=== PATIENT | male | born 1960 | race Two or more races ===

== ENCOUNTER 2021-02-13 09:17 | Inpatient (IN) | payer OTHER ==
[2021-02-10 13:46] LABS: BASOPHILS % (AUTO) 1 % (0-1); EOSINOPHILS % (AUTO) 1 % (1-7); LYMPHOCYTES % (AUTO) 34 % (22-44); MEAN CORPUSCULAR HEMOGLOBIN 28.2 pg (27.5-34.5); MEAN PLATELET VOLUME 8.2 fL (7.4-10.4); MONOCYTES % (AUTO) 9 % (2-9); NEUTROPHILS % (AUTO) 56 % (42-75); PLATELET COUNT 235 x10^3/uL (130-400); RED BLOOD COUNT 5.07 x10^6/uL (4.38-5.82); RED CELL DISTRIBUTION WIDTH 15.1 % (9.4-14.8)
[2021-02-10 13:50] LABS: MD NO
[2021-02-10 14:00] LABS: ALBUMIN 3.9 g/dL (3.4-5.0); ANION GAP 4 mmol/L (5-15); CALCIUM 8.9 mg/dL (8.5-10.1); CHLORIDE 108 mmol/L (98-107)
[2021-02-10 14:04] LABS: ALANINE AMINOTRANSFERASE 37 U/L (12-78); ALKALINE PHOSPHATASE 122 U/L (45-117); BILIRUBIN,TOTAL 1.1 mg/dL (0.2-1.0); CREATININE 1.09 mg/dL (0.7-1.3)
[~2021-02-13] VITALS: Ht 167.6 cm; Wt 77.9 kg
[~2021-02-13 09:17] MED LIST: AMLO5TAB4 PO; ASPI81TA45 PO; ATOR40TA78 PO; HEPARIN 1,000 UNITS/ML, 10ML ONE; PROTAMINE SULFATE 10 MG/ML, 25ML ONE; THROMBIN 20,000 UNIT VIAL TP ONE
[2021-02-13] MEDS ORDERED: MIDAZOLAM 1 MG/ML, 2ML ONE (09:23)
[2021-02-13] MEDS ORDERED: FENTANYL PF 250 MCG/5ML ONE (09:24)
[2021-02-13] MEDS ORDERED: CHLORHEXIDINE 15 ML UDC PO ONE (10:00)
[2021-02-13] MEDS ORDERED: LACTATED RINGERS 1,000 ML IV SCH (10:00)
[2021-02-13] MEDS ORDERED: LIDOCAINE-MPF 1%, 2ML INFIL ONE (10:00)
[2021-02-13] MEDS ORDERED: CHLORHEXIDINE 15 ML UDC ONE (10:02)
[2021-02-13] MEDS ORDERED: ROCURONIUM 10 MG/ML,10ML ONE (11:10)
[2021-02-13] MEDS ORDERED: CEFAZOLIN 1,000 MG ONE (11:10)
[2021-02-13] MEDS ORDERED: NEOSTIGMINE 1 MG/ML, 10ML ONE (11:10)
[2021-02-13] MEDS ORDERED: GLYCOPYRROLATE 0.2MG/1ML, 5ML ONE (11:10)
[2021-02-13] MEDS ORDERED: PHENYLEPHRINE 10 MG/ML ONE (11:10)
[2021-02-13] MEDS ORDERED: DEXAMETHASONE 4 MG/ML, 1ML ONE (11:10)
[2021-02-13] MEDS ORDERED: PROPOFOL 10 MG/ML, 20ML ONE (11:10)
[2021-02-13] MEDS ORDERED: HEPARIN 1,000 UNITS/ML, 10ML IV ONE (12:05)
[2021-02-13] MEDS ORDERED: HEPARIN 1,000 UNITS/ML, 30ML ONE (12:08)
[2021-02-13] MEDS: HYDROmorphone 5 MG, BUPIVACAINE/PF 0.5%, 30ML 62.5 ML in SODIUM CHLORIDE 0.9% 182.5 ML EPIDCONT SCH ×2 (13:00→17:00)
[2021-02-13] MEDS ORDERED: ONDANSETRON 2MG/ML, 2ML IVPush PRN ×2 (13:00→16:30)
[2021-02-13] MEDS ORDERED: PROMETHAZINE 25 MG/ML, 1ML IVPush PRN (13:00)
[2021-02-13] MEDS ORDERED: METHOCARBAMOL 1,000 MG in DEXTROSE 5% 100 ML IV PRN (13:00)
[2021-02-13] MEDS ORDERED: NALOXONE 0.4 MG/ML, 1ML IV PRN (13:00)
[2021-02-13] MEDS ORDERED: OXYcodone 5 MG/5 ML ORAL.SOL UDC PO PRN (13:00)
[2021-02-13] MEDS ORDERED: HYDROmorphone 1 MG/ML, 1ML INJ IVPush PRN (13:00)
[2021-02-13] MEDS ORDERED: EPHEDRINE 50 MG/ML, 1ML IM PRN (13:00)
[2021-02-13] MEDS ORDERED: DIPHENHYDRAMINE 50 MG/ML, 1ML IVPush PRN (13:00)
[2021-02-13] MEDS ORDERED: METOCLOPRAMIDE 5 MG/ML, 2ML IV PRN (13:00)
[2021-02-13] MEDS ORDERED: MEPERIDINE/PF 25MG/0.5ML IVPush PRN (13:00)
[2021-02-13] MEDS ORDERED: DIAZEPAM 5 MG/ML, 2ML IVPush PRN (13:00)
[2021-02-13] MEDS ORDERED: DO NOT GIVE XX SCH (13:00)
[2021-02-13] MEDS ORDERED: EPHEDRINE 50 MG/ML, 1ML IVPush PRN ×2 (13:00)
[2021-02-13] MEDS ORDERED: ACETAMINOPHEN 325 MG TABLET PO PRN (13:00)
[2021-02-13] MEDS ORDERED: hydrALAzine 20 MG/ML, 1ML IV PRN (13:00)
[2021-02-13] MEDS ORDERED: MEPERIDINE/PF 25MG/0.5ML IV PRN (13:00)
[2021-02-13] MEDS ORDERED: LABETALOL 5MG/ML, 20ML IV PRN (13:00)
[2021-02-13] MEDS ORDERED: THROMBIN 20,000 UNIT VIAL TP ONE (13:38)
[2021-02-13] MEDS ORDERED: FUROSEMIDE 20 MG/2 ML ONE (16:07)
[2021-02-13] MEDS ORDERED: FENTANYL PF 100 MCG/2ML ONE ×3 (16:10→17:05)
[2021-02-13] MEDS ORDERED: LABETALOL 5MG/ML, 20ML IVPush PRN (16:30)
[2021-02-13] MEDS: FENTANYL PF 100 MCG/2ML IV PRN ×5 (16:37→17:23)
[2021-02-13 18:03] LABS: BASOPHILS % (AUTO) 0 % (0-1); EOSINOPHILS % (AUTO) 0 % (1-7); LYMPHOCYTES % (AUTO) 9 % (22-44); MEAN CORPUSCULAR HGB CONC 32.5 g/dL (33.2-36.2); MEAN PLATELET VOLUME 8.3 fL (7.4-10.4); MONOCYTES % (AUTO) 3 % (2-9); NEUTROPHILS % (AUTO) 88 % (42-75); PLATELET COUNT 224 x10^3/uL (130-400); RED BLOOD COUNT 4.37 x10^6/uL (4.38-5.82)
[2021-02-13 18:12] LABS: ANION GAP 6 mmol/L (5-15); CALCIUM 7.6 mg/dL (8.5-10.1); CHLORIDE 113 mmol/L (98-107); CREATININE 1.39 mg/dL (0.7-1.3)
[2021-02-13 18:20] LABS: MD SCAN
[2021-02-13] MEDS: LACTATED RINGERS 1,000 ML IV SCH (20:05)
[2021-02-13] MEDS: CEFAZOLIN PMX 1GM/50ML 50 ML IVPB SCH (20:06)
[2021-02-13] MEDS: MEPERIDINE/PF 25MG/ML,1ML IV PRN ×2 (20:54→23:48)
[2021-02-13] MEDS ORDERED: MEPERIDINE/PF 25MG/ML,1ML IV PRN (21:00)
[2021-02-14] MEDS: LACTATED RINGERS 1,000 ML IV SCH ×2 (03:04→09:52)
[2021-02-14] MEDS: CEFAZOLIN PMX 1GM/50ML 50 ML IVPB SCH (04:04)
[2021-02-14 04:27] LABS: BASOPHILS % (AUTO) 1 % (0-1); EOSINOPHILS % (AUTO) 0 % (1-7); LYMPHOCYTES % (AUTO) 8 % (22-44); MEAN CORPUSCULAR HEMOGLOBIN 28.8 pg (27.5-34.5); MEAN CORPUSCULAR HGB CONC 33.4 g/dL (33.2-36.2); MEAN PLATELET VOLUME 8.6 fL (7.4-10.4); MONOCYTES % (AUTO) 9 % (2-9); NEUTROPHILS % (AUTO) 83 % (42-75); PLATELET COUNT 202 x10^3/uL (130-400); RED BLOOD COUNT 4.06 x10^6/uL (4.38-5.82)
[2021-02-14 04:30] LABS: MD NO
[2021-02-14 04:36] LABS: ANION GAP 6 mmol/L (5-15); CALCIUM 7.7 mg/dL (8.5-10.1); CHLORIDE 112 mmol/L (98-107); CREATININE 1.24 mg/dL (0.7-1.3)
[2021-02-14] MEDS: MEPERIDINE/PF 25MG/ML,1ML IV PRN (07:46)
[2021-02-14] MEDS ORDERED: HYDROmorphone 5 MG, BUPIVACAINE/PF 0.5%, 30ML 62.5 ML in SODIUM CHLORIDE 0.9% 182.5 ML EPIDCONT PRN (11:00)
[2021-02-14] MEDS ORDERED: HYDROmorphone 1 MG/ML, 1ML INJ IV PRN (11:00)
[2021-02-14] MEDS: D5%-0.45NACL+KCL 20MEQ 1,000 ML IV SCH ×2 (11:29→18:25)
[2021-02-14] MEDS: ENOXAPARIN 40 MG/0.4 ML SQ SCH (16:28)
[2021-02-15] MEDS: D5%-0.45NACL+KCL 20MEQ 1,000 ML IV SCH ×4 (00:56→19:50)
[2021-02-15 04:36] LABS: BASOPHILS % (AUTO) 1 % (0-1); EOSINOPHILS % (AUTO) 0 % (1-7); LYMPHOCYTES % (AUTO) 15 % (22-44); MEAN CORPUSCULAR HEMOGLOBIN 28.8 pg (27.5-34.5); MEAN CORPUSCULAR HGB CONC 33.9 g/dL (33.2-36.2); MEAN PLATELET VOLUME 8.5 fL (7.4-10.4); MONOCYTES % (AUTO) 12 % (2-9); NEUTROPHILS % (AUTO) 73 % (42-75); PLATELET COUNT 156 x10^3/uL (130-400); RED BLOOD COUNT 3.42 x10^6/uL (4.38-5.82); RED CELL DISTRIBUTION WIDTH 15.6 % (9.4-14.8)
[2021-02-15 04:39] LABS: ALBUMIN 2.5 g/dL (3.4-5.0); CALCIUM 7.7 mg/dL (8.5-10.1); CHLORIDE 111 mmol/L (98-107); CREATININE 0.95 mg/dL (0.7-1.3)
[2021-02-15 04:48] LABS: ANION GAP 3 mmol/L (5-15)
[2021-02-15 05:04] LABS: <PLATELET ESTIMATE> ADEQUATE; MD MORPH REVIEW ONLY
[2021-02-15 05:05] LABS: POLYCHROMASIA 1+
[2021-02-15 05:06] LABS: ANISOCYTOSIS 1+; BASOPHILLIC STIPPLING 1+; LARGE PLATELETS 1+; OVALOCYTES 1+
[2021-02-15] MEDS ORDERED: SODIUM PHOSPHATE 10 MMOL in SODIUM CHLORIDE 0.9% 500 ML IV ONE (07:00)
[2021-02-15] MEDS ORDERED: SODIUM CHLORIDE 0.9%, 500ML IVBOLUS ONE (08:00)
[2021-02-15] MEDS: AMLODIPINE 5 MG TABLET PO SCH (09:00)
[2021-02-15] MEDS: ATORVASTATIN 40 MG TABLET PO SCH (09:00)
[2021-02-15] MEDS ORDERED: POTASSIUM PHOSPHATE 22 MEQ in SODIUM CHLORIDE 0.9% 500 ML IV ONE (09:30)
[2021-02-15] MEDS ORDERED: CALCIUM GLUCONATE 4.6 MEQ in SODIUM CHLORIDE 0.9% 90 ML IV ONE (09:30)
[2021-02-15] MEDS ORDERED: ACETAMINOPHEN 100 ML IVPB ONE (10:00)
[2021-02-15] MEDS ORDERED: PHENOL THROAT SPRAY BOTTLE MM PRN (10:00)
[2021-02-15 10:23] VITALS: BP 144/69
[2021-02-15 13:13] VITALS: BP 123/63
[2021-02-15] MEDS: ENOXAPARIN 40 MG/0.4 ML SQ SCH (16:08)
[2021-02-15 18:49] VITALS: BP 154/78
[2021-02-15] MEDS: ASPIRIN 81 MG TABLET EC PO SCH (19:51)
[2021-02-16 01:41] VITALS: BP 160/77
[2021-02-16] MEDS: D5%-0.45NACL+KCL 20MEQ 1,000 ML IV SCH ×3 (01:58→18:01)
[2021-02-16 07:24] VITALS: BP 130/63
[2021-02-16] MEDS: AMLODIPINE 5 MG TABLET PO SCH (08:32)
[2021-02-16] MEDS: ATORVASTATIN 40 MG TABLET PO SCH (08:32)
[2021-02-16 09:54] LABS: BASOPHILS % (AUTO) 0 % (0-1); CALCIUM 7.9 mg/dL (8.5-10.1); CREATININE 0.81 mg/dL (0.7-1.3); EOSINOPHILS % (AUTO) 0 % (1-7); LYMPHOCYTES % (AUTO) 19 % (22-44); MEAN CORPUSCULAR HEMOGLOBIN 28.7 pg (27.5-34.5); MEAN CORPUSCULAR HGB CONC 33.2 g/dL (33.2-36.2); MEAN PLATELET VOLUME 8.7 fL (7.4-10.4); MONOCYTES % (AUTO) 10 % (2-9); NEUTROPHILS % (AUTO) 71 % (42-75); PLATELET COUNT 178 x10^3/uL (130-400); RED BLOOD COUNT 3.28 x10^6/uL (4.38-5.82); RED CELL DISTRIBUTION WIDTH 15.3 % (9.4-14.8)
[2021-02-16 09:59] LABS: CHLORIDE 108 mmol/L (98-107)
[2021-02-16 10:00] LABS: MD NO
[2021-02-16 10:02] LABS: ANION GAP 5 mmol/L (5-15)
[2021-02-16] MEDS ORDERED: SODIUM CHLORIDE 0.9% 1,000ML IV ONE (10:30)
[2021-02-16 13:03] VITALS: BP 139/78
[2021-02-16] MEDS ORDERED: BISACODYL 10 MG SUPP PR PRN (14:30)
[2021-02-16] MEDS: ENOXAPARIN 40 MG/0.4 ML SQ SCH (16:09)
[2021-02-16] MEDS ORDERED: CALCIUM GLUCONATE 4.6 MEQ in SODIUM CHLORIDE 0.9% 100 ML IV ONE (16:30)
[2021-02-16] MEDS ORDERED: LABETALOL 5MG/ML, 20ML IVPush ONE (16:30)
[2021-02-16] MEDS ORDERED: FUROSEMIDE 20 MG/2 ML IV ONE (17:00)
[2021-02-16 17:58] VITALS: BP 160/78
[2021-02-16 18:44] VITALS: BP 132/74
[2021-02-16] MEDS: ASPIRIN 81 MG TABLET EC PO SCH (20:42)
[2021-02-16] MEDS: HYDROmorphone 5 MG, BUPIVACAINE/PF 0.5%, 30ML 62.5 ML in SODIUM CHLORIDE 0.9% 182.5 ML EPIDCONT PRN ×2 (23:19)
[2021-02-17 03:11] VITALS: BP 153/88
[2021-02-17 07:12] VITALS: BP 158/83
[2021-02-17] MEDS ORDERED: MAGNESIUM SULFATE PMX 2GM/50ML 50 ML IV ONE (09:00)
[2021-02-17] MEDS ORDERED: ENALAPRILAT 1.25 MG/ML, 1ML IV SCH (09:00)
[2021-02-17] MEDS: ATORVASTATIN 40 MG TABLET PO SCH (09:03)
[2021-02-17] MEDS: D5%-0.45NACL+KCL 20MEQ 1,000 ML IV SCH ×2 (09:03→22:07)
[2021-02-17] MEDS: AMLODIPINE 5 MG TABLET PO SCH (09:03)
[2021-02-17 13:32] VITALS: BP 135/79
[2021-02-17] MEDS: ENOXAPARIN 40 MG/0.4 ML SQ SCH (16:27)
[2021-02-17] MEDS: CARVEDILOL 3.125 MG TABLET PO SCH (17:40)
[2021-02-17 19:51] VITALS: BP 139/75
[2021-02-17] MEDS: ASPIRIN 81 MG TABLET EC PO SCH (20:18)
[2021-02-18 02:20] VITALS: BP 130/71
[2021-02-18] MEDS: CARVEDILOL 3.125 MG TABLET PO SCH ×2 (05:38→18:05)
[2021-02-18] MEDS: ATORVASTATIN 40 MG TABLET PO SCH (07:56)
[2021-02-18] MEDS: AMLODIPINE 5 MG TABLET PO SCH (07:56)
[2021-02-18 08:00] VITALS: BP 150/77
[2021-02-18] MEDS ORDERED: HYDROcodone/APAP 5/325 TABLET PO PRN (12:30)
[2021-02-18] MEDS ORDERED: ACETAMINOPHEN 325 MG TABLET PO PRN (12:30)
[2021-02-18 14:00] VITALS: BP 145/71
[2021-02-18] MEDS: ENOXAPARIN 40 MG/0.4 ML SQ SCH (15:58)
[2021-02-18 18:05] VITALS: BP 138/78
[2021-02-18 21:13] VITALS: BP 133/75
[2021-02-18] MEDS: DOCUSATE 100 MG CAPSULE PO SCH (21:26)
[2021-02-18] MEDS: ASPIRIN 81 MG TABLET EC PO SCH (21:26)
[2021-02-19 02:14] VITALS: BP 134/77
[2021-02-19] MEDS: CARVEDILOL 3.125 MG TABLET PO SCH (06:52)
[2021-02-19 07:36] VITALS: BP 146/68
[2021-02-19] MEDS: ATORVASTATIN 40 MG TABLET PO SCH (07:48)
[2021-02-19] MEDS: DOCUSATE 100 MG CAPSULE PO SCH (08:06)
[2021-02-19] MEDS: AMLODIPINE 5 MG TABLET PO SCH (08:06)
[2021-02-19] MEDS ORDERED: CARV3.1212 PO (10:14)
[2021-02-19] MEDS ORDERED: OXYC1TAB14 PO (12:29)
[2021-02-19] MEDS ORDERED: DOCU-131 PO (12:29)
== END 2021-02-19 13:45 | disposition home or self-care (01) | DRG 271 ==
LOC: ORIP 09:17 → CCU 18:31 → 4NE 02-15 10:26 → DCLOUNGE 02-19 13:34
PROVIDERS: ADMIT Surgery; ATTEND Family Medicine
PROC: 04100JK Bypass Abdominal Aorta to Bilateral Femoral Arteries with Synthetic Substitute, Open Approach (ICD-10-PCS; principal; 2021-02-16)
PROC: 04CL0ZZ Extirpation of Matter from Left Femoral Artery, Open Approach (ICD-10-PCS; 2021-02-16)
DX: I70.222 Atherosclerosis of native arteries of extremities with rest pain, left leg (principal); D62 Acute posthemorrhagic anemia; K56.7 Ileus, unspecified; I77.1 Stricture of artery; K21.9 Gastro-esophageal reflux disease without esophagitis; D72.829 Elevated white blood cell count, unspecified; E83.39 Other disorders of phosphorus metabolism; E83.51 Hypocalcemia; E88.09 Other disorders of plasma-protein metabolism, not elsewhere classified; F17.210 Nicotine dependence, cigarettes, uncomplicated; Z80.8 Family history of malignant neoplasm of other organs or systems; Z82.49 Family history of ischemic heart disease and other diseases of the circulatory system; N52.01 Erectile dysfunction due to arterial insufficiency; R00.0 Tachycardia, unspecified; Z20.822 Contact with and (suspected) exposure to COVID-19; R73.03 Prediabetes
CPT/HCPCS: 36415; S0020; 71045; 71046; 80048; 80053; 82040; 82330; 83735; 84100; 85018; 85025; 86850; 86900; 87081; 93005; C1768; G0378; J0131; J0610; J0690; J1100; J1170; J1644; J1650; J2250; J2405; J2704; J2710; J2720; J3010; U0005; J1940; J2175; J2370; J3475; J3480; J7030; J7040; J7050; J7120; U0003